=== PATIENT | male | born 1945 | race Caucasian/White ===

== ENCOUNTER 2016-05-13 12:19 | Emergency (ER) | payer MEDICARE ==
[2016-05-13 12:29] VITALS: TEMP 97.3; BMI 22.4
[2016-05-13 14:56] VITALS: BP 111/79; PULSE 80
[2016-05-13] MEDS ORDERED: OXYCODONE HCL 5 MG TABLET PO ONE (15:04)
[2016-05-13] MEDS ORDERED: IBUPROFEN 800 MG TAB PO ONE (15:04)
[2016-05-13] MEDS ORDERED: SILVER SULFADIAZINE 1% CREAM 20 GM TUBE TOP ONE (15:04)
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
== END 2016-05-13 15:17 | disposition home or self-care (01) ==
LOC: EDMC 12:19
DX: T30.0 Burn of unspecified body region, unspecified degree (principal); X08.8XXA Exposure to other specified smoke, fire and flames, initial encounter; Y93.9 Activity, unspecified
CPT/HCPCS: 99282; A9270; J3490